=== PATIENT | female | born 1970 | race Asian ===

== ENCOUNTER → 2017-02-24 | Outpatient (CLI) | payer OTHER | END | disposition home or self-care (01) | LOC: CFH 09:26 | PROVIDERS: ATTEND Nurse Practitioner Family | DX: Z12.31 Encounter for screening mammogram for malignant neoplasm of breast (principal) | CPT/HCPCS: 77063; G0202 ==

== ENCOUNTER → 2018-05-23 | Outpatient (CLI) | payer OTHER | END | disposition home or self-care (01) | LOC: CFH 07:48 | PROVIDERS: ATTEND Family Medicine | DX: Z12.31 Encounter for screening mammogram for malignant neoplasm of breast (principal) | CPT/HCPCS: 77063; 77067 ==

== ENCOUNTER → 2019-06-14 | Outpatient (CLI) | payer OTHER | END | disposition home or self-care (01) | LOC: CFH 07:18 → EDSTATUS 07:30 | PROVIDERS: ATTEND Family Medicine | DX: Z12.31 Encounter for screening mammogram for malignant neoplasm of breast (principal); Z00.00 Encounter for general adult medical examination without abnormal findings; N64.89 Other specified disorders of breast | CPT/HCPCS: 71046; 76700; 77063; 77067 ==

== ENCOUNTER → 2019-06-21 | Outpatient (CLI) | payer OTHER | END | disposition home or self-care (01) | LOC: RAD 07:28 | PROVIDERS: ATTEND Family Medicine | DX: Z00.00 Encounter for general adult medical examination without abnormal findings (principal) | CPT/HCPCS: 74241 ==

== ENCOUNTER → 2019-08-22 | Outpatient (CLI) | payer OTHER | END | disposition home or self-care (01) | LOC: CFH 07:11 → EDSTATUS 07:30 | PROVIDERS: ATTEND Family Medicine | DX: N85.2 Hypertrophy of uterus (principal); N85.4 Malposition of uterus | CPT/HCPCS: 76856 ==

== ENCOUNTER → 2020-01-08 | Outpatient (CLI) | payer OTHER ==
[~2020-01-08] MED LIST: IRON1TAB60 PO
[2020-01-08 14:32] LABS: BASOPHILS # (AUTO) 0.03 x10^3/uL (0-0.1); BASOPHILS % (AUTO) 1 % (0-1); EOSINOPHILS % (AUTO) 4 % (1-7); LYMPHOCYTES # (AUTO) 1.83 x10^3/uL (1-3.4); LYMPHOCYTES % (AUTO) 33 % (22-44); MD NO; MEAN CORPUSCULAR HEMOGLOBIN 32.1 pg (27.0-34.8); MEAN CORPUSCULAR HGB CONC 33.6 g/dL (32.4-35.8); MEAN CORPUSCULAR VOLUME 95.5 fL (80-100); MONOCYTES # (AUTO) 0.52 x10^3/uL (0.2-0.8); MONOCYTES % (AUTO) 9 % (2-9); NEUTROPHILS % (AUTO) 54 % (42-75); PLATELET COUNT 220 x10^3/uL (130-400); RED BLOOD COUNT 4.27 x10^6/uL (3.82-5.3); RED CELL DISTRIBUTION WIDTH 14.1 % (9.6-15.2)
[2020-01-08 14:42] LABS: ALANINE AMINOTRANSFERASE 29 U/L (12-78); ALBUMIN 4.1 g/dL (3.4-5.0); ANION GAP 2 mmol/L (5-15); CALCIUM 9.1 mg/dL (8.5-10.1); CHLORIDE 108 mmol/L (98-107); CREATININE 0.64 mg/dL (0.55-1.02)
[2020-01-08 14:44] LABS: ALKALINE PHOSPHATASE 53 U/L (45-117); BILIRUBIN,TOTAL 0.5 mg/dL (0.2-1.0); TOTAL PROTEIN 7.7 g/dL (6.4-8.2)
== END | disposition home or self-care (01) ==
LOC: STAR 13:07
PROVIDERS: ATTEND Specialist
DX: Z01.818 Encounter for other preprocedural examination (principal); D21.9 Benign neoplasm of connective and other soft tissue, unspecified
CPT/HCPCS: 36415; 80053; 85025; 93005

== ENCOUNTER 2020-01-15 10:07 | Inpatient (IN) | payer OTHER ==
[2020-01-08 13:43] VITALS: BP 124/85
[~2020-01-15] VITALS: Ht 157.5 cm; Wt 54.9 kg
[2020-01-15] MEDS ORDERED: CHLORHEXIDINE 15 ML UDC MM ONE (10:30)
[2020-01-15] MEDS ORDERED: GABAPENTIN 300 MG CAPSULE PO ONE (10:30)
[2020-01-15] MEDS ORDERED: SCOPOLAMINE 1MG PATCH TD SCH (10:30)
[2020-01-15] MEDS ORDERED: ACETAMINOPHEN 500 MG TABLET PO ONE (10:30)
[2020-01-15 10:41] VITALS: BP 124/85
[2020-01-15 10:58] LABS: HCG UR SG 1.011 (1.003-1.030)
[2020-01-15] MEDS: LACTATED RINGERS 1,000 ML IV SCH ×2 (11:00→17:39)
[2020-01-15] MEDS ORDERED: MEPERIDINE/PF 25MG/0.5ML IVPush PRN (12:00)
[2020-01-15] MEDS ORDERED: DIPHENHYDRAMINE 50 MG/ML, 1ML IVPush PRN (12:00)
[2020-01-15] MEDS ORDERED: LABETALOL 5MG/ML, 20ML IV PRN (12:00)
[2020-01-15] MEDS ORDERED: HYDROmorphone 1 MG/ML, 1ML INJ IVPush PRN (12:00)
[2020-01-15] MEDS ORDERED: hydrALAzine 20 MG/ML, 1ML IV PRN (12:00)
[2020-01-15] MEDS ORDERED: PROMETHAZINE 25 MG/ML, 1ML IVPush PRN (12:00)
[2020-01-15] MEDS ORDERED: HALOPERIDOL 5 MG/ML IV PRN (12:00)
[2020-01-15] MEDS ORDERED: OXYcodone 5 MG/5 ML ORAL.SOL UDC PO PRN (12:00)
[2020-01-15] MEDS ORDERED: MIDAZOLAM 1 MG/ML, 2ML ONE (12:21)
[2020-01-15] MEDS ORDERED: FENTANYL PF 250 MCG/5ML ONE (12:21)
[2020-01-15] MEDS ORDERED: KETOROLAC 30 MG/1 ML ONE (12:24)
[2020-01-15] MEDS ORDERED: ROPIvacaine/PF 0.2%, 20 ML ONE ×2 (12:50)
[2020-01-15] MEDS ORDERED: PROPOFOL 10 MG/ML, 20ML ONE (13:40)
[2020-01-15] MEDS ORDERED: ONDANSETRON 2MG/ML, 2ML ONE (13:40)
[2020-01-15] MEDS ORDERED: SUCCINYLCHOLINE 20 MG/ML, 10ML ONE (13:40)
[2020-01-15] MEDS ORDERED: ROCURONIUM 10MG/ML,5ML ONE (13:40)
[2020-01-15] MEDS ORDERED: NEOSTIGMINE 1 MG/ML, 10ML ONE (13:40)
[2020-01-15] MEDS ORDERED: GLYCOPYRROLATE 0.2MG/1ML, 5ML ONE (13:40)
[2020-01-15] MEDS ORDERED: CEFAZOLIN 1,000 MG ONE (13:40)
[2020-01-15] MEDS ORDERED: DEXAMETHASONE 4 MG/ML, 1ML ONE (13:40)
[2020-01-15] MEDS ORDERED: FENTANYL PF 100 MCG/2ML ONE ×2 (14:33→15:01)
[2020-01-15] MEDS: FENTANYL PF 100 MCG/2ML IV PRN ×5 (14:36→15:28)
[2020-01-15] MEDS ORDERED: OXYcodone 5 MG/5 ML ORAL.SOL UDC ONE (15:01)
[2020-01-15] MEDS ORDERED: KETOROLAC 30 MG/1 ML IV PRN (17:00)
[2020-01-15] MEDS ORDERED: ONDANSETRON 2MG/ML, 2ML IV PRN (17:00)
[2020-01-15] MEDS ORDERED: HYDROmorphone 2 MG/ML, 1ML IV PRN (17:00)
[2020-01-15] MEDS: D5%-LACTATED RINGERS 1,000 ML IV SCH (18:26)
[2020-01-15] MEDS: OXYcodone 5 MG/5 ML ORAL.SOL UDC PO PRN (18:32)
[2020-01-15 18:59] VITALS: BP 112/60
[2020-01-15] MEDS: KETOROLAC 30 MG/1 ML IV SCH (20:04)
[2020-01-15 23:57] VITALS: BP 98/63
[2020-01-16] MEDS: D5%-LACTATED RINGERS 1,000 ML IV SCH ×2 (01:43→08:24)
[2020-01-16] MEDS: KETOROLAC 30 MG/1 ML IV SCH ×3 (01:47→14:10)
[2020-01-16 03:54] VITALS: BP 93/65
[2020-01-16 07:09] VITALS: BP 99/62
[2020-01-16] MEDS: OXYcodone 5 MG/5 ML ORAL.SOL UDC PO PRN (07:11)
[2020-01-16 12:43] VITALS: BP 98/64
[2020-01-16] MEDS ORDERED: IBUP200T49 PO (14:06)
[2020-01-16] MEDS ORDERED: OXYC5TAB3 PO (14:08)
[2020-01-17] MEDS ORDERED: IBUPROFEN 600 MG TABLET PO SCH (21:00)
== END 2020-01-16 15:36 | disposition home or self-care (01) | DRG 743 ==
LOC: OUT 10:07 → 3N 15:59 → OUT 19:09 → ORIP 19:10 → 3N 19:26 → DCLOUNGE 01-16 15:09
PROVIDERS: ADMIT Specialist; ATTEND Specialist
PROC: 0UT70ZZ Resection of Bilateral Fallopian Tubes, Open Approach (ICD-10-PCS; 2020-01-15)
PROC: 0UT20ZZ Resection of Bilateral Ovaries, Open Approach (ICD-10-PCS; 2020-01-15)
PROC: 0UT90ZL Resection of Uterus, Supracervical, Open Approach (ICD-10-PCS; principal; 2020-01-15 12:30)
DX: D25.9 Leiomyoma of uterus, unspecified (principal); D50.0 Iron deficiency anemia secondary to blood loss (chronic); N92.0 Excessive and frequent menstruation with regular cycle; Z80.8 Family history of malignant neoplasm of other organs or systems
CPT/HCPCS: 36415; J7121; 81025; 85014; 85018; 86850; 86900; 88307; G0378; J0690; J1100; J1885; J2250; J2405; J2704; J2710; J2795; J3010; J0330; J7120; U0001-CS